=== PATIENT | male | born 1950 | race Caucasian/White ===

== ENCOUNTER 2018-04-14 09:56 | Outpatient (CLI) | payer MEDICARE, BC ==
--- NOTE | 2018-04-14 11:10 | RAD ---
PA AND LATERAL CHEST: HISTORY: Cough and congestion. FINDINGS: Heart size and mediastinum within normal limits. The lungs are clear of infiltrates. No significant bony findings. IMPRESSION: No active intrathoracic disease. POS: [facility]
== END 2018-04-14 09:57 | disposition home or self-care (01) ==
LOC: MADRAD 09:56
PROVIDERS: ATTEND Family Medicine
DX: J18.1 Lobar pneumonia, unspecified organism (principal)
CPT/HCPCS: 71046

== ENCOUNTER 2018-12-15 12:04 | Outpatient (CLI) | payer MEDICARE, BC ==
--- NOTE | 2018-12-15 12:31 | RAD ---
Exam: Chest 2 views HISTORY:Cough and congestion Comparison: 04/14/2018 FINDINGS: Lungs: No masses or consolidation. Cardiac silhouette: Normal size Pulmonary vessels: Normal Pleural Spaces: Clear Pneumothorax: None Osseous abnormalities: None of acuity. IMPRESSION: No focal consolidation.
== END 2018-12-15 12:05 | disposition home or self-care (01) ==
LOC: MADRAD 12:04
PROVIDERS: ATTEND Family Medicine
DX: J18.9 Pneumonia, unspecified organism (principal)
CPT/HCPCS: 71046

== ENCOUNTER 2021-03-19 11:56 | Outpatient (CLI) | payer MEDICARE, BC ==
[2021-03-19 12:22] LABS: #Basophils 0.1 thou/uL (0.0-0.2); #Lymphocytes 0.3 thou/uL (1.20-3.40); #Monocytes 0.3 thou/uL (0.11-0.59); #Neutrophils 6.1 thou/uL (1.40-6.50); %Basophils 0.8 % (0.0-1.0); %Eosinophils 0.7 % (0.0-10.0); %Lymphocytes 4.6 % (21.0-51.0); %Monocytes 3.6 % (0.0-10.0); %Neutrophils 90.3 % (42.0-75.0); Hemoglobin 15.4 g/dL (14.0-18.0); Mean Corpuscular HGB CONC 32.7 g/dL (32.0-36.0); Mean Corpuscular Hemoglobin 31.7 pg (27.0-31.0); Mean Corpuscular Volume 96.9 fL (78.0-98.0); Mean Platelet Volume 5.7 fL (7.4-10.4); Platelet Count 226 thou/uL (130-400); RBC Distribution Width 11.2 % (11.5-14.5); Red Blood Cell (RBC) Count 4.87 mill/uL (4.70-6.10); White Blood Cell (WBC) Count 6.8 thou/uL (4.8-10.8)
== END 2021-03-19 11:57 | disposition home or self-care (01) ==
LOC: MADRAD 11:56
PROVIDERS: ATTEND Family Medicine
DX: U07.1 COVID-19 (principal); J12.82 Pneumonia due to coronavirus disease 2019
CPT/HCPCS: 36415; 71046; 85025; 85379

== ENCOUNTER 2021-06-04 10:18 | Outpatient (CLI) | payer MEDICARE, BC ==
[2021-06-04 10:41] LABS: Anion Gap 17 mmol/L (10-20); BUN (Urea Nitrogen) 8 mg/dL (8.4-25.7); Calc. Creatinine Clearance 0 mL/min (70-130); Calcium 9.4 mg/dL (7.8-10.44); Carbon Dioxide 23 mmol/L (23-31); Chloride 103 mmol/L (98-107); Glucose 90 mg/dL (83-110); Potassium 4.2 mmol/L (3.5-5.1); Sodium 139 mmol/L (136-145)
== END 2021-06-04 10:19 | disposition home or self-care (01) ==
LOC: MADLAB 10:18
PROVIDERS: ATTEND Family Medicine
DX: R05.9 Cough, unspecified (principal); R06.02 Shortness of breath; J12.82 Pneumonia due to coronavirus disease 2019; J84.10 Pulmonary fibrosis, unspecified
CPT/HCPCS: 36415; 71260; 80048

== ENCOUNTER 2021-11-30 13:27 | Outpatient (CLI) | payer MEDICARE, BC | END 2021-11-30 13:28 | disposition home or self-care (01) | LOC: MADRAD 13:27 | PROVIDERS: ATTEND Family Medicine | DX: M54.41 Lumbago with sciatica, right side (principal); M47.816 Spondylosis without myelopathy or radiculopathy, lumbar region | CPT/HCPCS: 72100 ==

== ENCOUNTER 2021-12-03 15:03 | Outpatient (CLI) | payer MEDICARE, BC ==
[~2021-12-03 15:03] MED LIST: Iopamidol 370 76% 100 ML VIAL ONE
== END 2021-12-03 15:04 | disposition home or self-care (01) ==
LOC: MADCT 15:03
PROVIDERS: ATTEND Family Medicine
DX: R31.9 Hematuria, unspecified (principal); M54.6 Pain in thoracic spine; K57.30 Diverticulosis of large intestine without perforation or abscess without bleeding; D73.89 Other diseases of spleen; M89.9 Disorder of bone, unspecified
CPT/HCPCS: 74177; Q9967

== ENCOUNTER 2022-01-18 11:47 | Outpatient (CLI) | payer MEDICARE, BC | END 2022-01-18 11:48 | disposition home or self-care (01) | LOC: MADRAD 11:47 | PROVIDERS: ATTEND Pain Medicine Pain Medicine | DX: M80.08XA Age-related osteoporosis with current pathological fracture, vertebra(e), initial encounter for fracture (principal); M47.816 Spondylosis without myelopathy or radiculopathy, lumbar region; M43.06 Spondylolysis, lumbar region; Z98.890 Other specified postprocedural states | CPT/HCPCS: 72072; 72100 ==